=== PATIENT | male | born 1995 | race Caucasian/White ===

== ENCOUNTER 2018-03-16 15:46 | Emergency (ER) | payer BC ==
--- NOTE | 2018-03-16 16:48 | ERPHSYRPT ---
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 STATES LOW GRADE FEVER IN LAST COUPLE DAYS. PT AFEBRILE AT THIS TIME. PT P/W/D RESP EASY A@OX3 Physician History: 22 y/o white male presents with over 2 week h/o right upper quadrant abdominal pain. pt had a normal gallbladder u/s recently per pt. pt denies n/v/d. he has had no fever. i reviewed gallbladder u/s report and no evidence of cholelithiasis or cholecystitis. Timing/Duration: week(s) (over 2 weeks) Activities at Onset: none Abdominal Pain Onset Location: RUQ Pain Radiation: no radiation Severity of Pain-Max: mild Severity of Pain-Current: mild Modifying Factors: Improves With: nothing Associated Symptoms: nausea (intermittent =/-), No back, No chest pain, No diaphoresis, No diarrhea, No loss of appetite, No testicular pain, No vomiting Previous symptoms: same symptoms as today Allergies/Adverse Reactions: No Known Allergies Adverse Reaction (Verified 03/16/18 16:29) Home Medications: Sertraline HCl 100 mg PO DAILY 03/16/18 [History] Trihexyphenidyl HCl 2 mg PO DAILY 03/16/18 [History] - Review of Systems Constitutional: No Symptoms Eyes: No Symptoms Ears, Nose, & Throat: No Symptoms Respiratory: No Symptoms Cardiac: No Symptoms Abdominal/Gastrointestinal: Abdominal Pain (right upper quad), No Nausea, No Vomiting, No Diarrhea, No Constipation Genitourinary Symptoms: No Symptoms Musculoskeletal: No Symptoms Skin: No Symptoms Neurological: No Symptoms Psychological: No Symptoms Endocrine: No Symptoms Hematologic/Lymphatic: No Symptoms Immunological/Allergic: No Symptoms All Other Systems: Reviewed and Negative - Past Medical History Pertinent Past Medical History: Yes Neurological History: No Pertinent History ENT History: No Pertinent History Cardiac History: No Pertinent History Respiratory History: No Pertinent History Endocrine Medical History: No Pertinent History Musculoskeletal History: No Pertinent History GI Medical History: No Pertinent History History: No Pertinent History Psycho-Social History: No Pertinent History Male Reproductive Disorders: No Pertinent History - Past Surgical History Past Surgical History: Yes Neuro Surgical History: No Pertinent History Cardiac: No Pertinent History Respiratory: No Pertinent History Gastrointestinal: No Pertinent History Genitourinary: No Pertinent History Musculoskeletal: No Pertinent History Male Surgical History: No Pertinent History Other Surgical History: RIGHT LIP SURGERY - Social History Smoking Status: Never smoker Drug Use: none - Nursing Vital Signs Nursing Vital Signs: Initial Vital Signs Temperature 98.5 F 03/16/18 16:24 Pulse Rate 99 H 03/16/18 16:24 Respiratory Rate 16 03/16/18 16:24 Blood Pressure 125/89 03/16/18 16:24 O2 Sat by Pulse Oximetry 99 03/16/18 16:24 Pain Scale Pain Intensity 4 - Physical Exam General Appearance: no apparent distress, alert, anxiety Eye Exam: PERRL/EOMI Ears, Nose, Throat Exam: normal ENT inspection, moist mucous membranes Neck Exam: normal inspection, non-tender, supple, full range of motion Respiratory Exam: normal breath sounds, lungs clear, airway intact, No chest tenderness, No respiratory distress, No accessory muscle use, No rhonchi, No wheezing, No stridor Cardiovascular Exam: regular rate/rhythm, normal heart sounds, normal peripheral pulses Gastrointestinal/Abdomen Exam: soft, tenderness (mild right upper quad), No guarding, No rebound Rectal Exam: not done Back Exam: normal inspection, normal range of motion, No CVA tenderness, No vertebral tenderness Extremity Exam: normal inspection, normal range of motion, pelvis stable Neurologic Exam: alert, oriented x 3, cooperative, 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 Skin Exam: normal color, warm, dry Lymphatic Exam: adenopathy SpO2 Interpretation: normal SpO2: 99 Oxygen Delivery: Room Air - Course Nursing assessment & vital signs reviewed: Yes Ordered Tests: Active Orders 24 hr Category Date Time Status ABDOMEN AND PELVIS W/0 CONTRAS [CT] Stat Exams 03/16/18 17:08 Taken AMYLASE Stat Lab 03/16/18 17:35 Completed CBC W DIFF Stat Lab 03/16/18 17:35 Completed CMP Stat Lab 03/16/18 17:35 Completed LIPASE Stat Lab 03/16/18 17:35 Completed Lactic Acid Stat Lab 03/16/18 16:49 Completed Manual Differential NC Stat Lab 03/16/18 17:35 Completed Lab/Rad Data: Laboratory Result Diagrams 03/16/18 17:35 03/16/18 17:35 Laboratory Results 03/16/18 03/16/18 03/16/18 Range/Units 17:35 17:35 16:49 WBC 8.9 (4.0-10.5) K/mm3 RBC 4.06 L (4.1-5.6) M/mm3 Hgb 12.3 L (12.5-18.0) gm/dl Hct 34.6 L (42-50) % MCV 85.2 (78-100) fl MCH 30.2 (26-32) pg MCHC 35.5 (32-36) g/dl RDW 14.3 H (11.5-14.0) % Plt Count 152 (150-450) K/mm3 MPV 10.1 H (6-9.5) fl Absolute Granulocytes 3.14 (1.4-6.9) Sodium 140 (137-145) mmol/L Potassium 4.2 (3.5-5.1) mmol/L Chloride 103 (98-107) mmol/L Carbon Dioxide 29 (22-30) mmol/L Anion Gap 13.0 (5-15) MEQ/L BUN 13 (9-20) mg/dL Creatinine 0.75 (0.66-1.25) mg/dL Estimated GFR > 60.0 ML/MIN Glucose 87 (74-106) mg/dL Lactic Acid 0.7 (0.4-2.0) Calcium 9.0 (8.4-10.2) mg/dL Total Bilirubin 0.70 (0.2-1.3) mg/dL AST 70 H (17-59) U/L ALT 118 H (0-50) U/L Alkaline Phosphatase 85 (38-126) U/L Serum Total Protein 7.0 (6.3-8.2) g/dL Albumin 4.1 (3.5-5.0) g/dL Amylase 77 (30-110) U/L Lipase 73 (23-300) U/L - Progress Progress: re-examined Progress Note: 03/16/18 18:13 ct abd pelvis- mild diffuse fecal stasis. no acute process. nl appendix. Counseled pt/family regarding: lab results, diagnosis, need for follow-up, rad results - Departure Time of Disposition: 18:13 Departure Disposition: Home Clinical Impression: Right upper quadrant abdominal pain, Elevated transaminase level Condition: Stable Critical Care Time: No Referrals: KHANH AMES [Primary Care Provider] - Additional Instructions: drink plenty of fluids. avoid fatty, greasy, spicy foods. follow up with primary doctor for HIDA scan if indicated.
[2018-03-16 17:41] LABS: Granulocyte Absolute (ANC) 3.14 (1.4-6.9); Hematocrit 34.6 % (42-50); Hemoglobin 12.3 gm/dl (12.5-18.0); Mean Cell Volume 85.2 fl (78-100); Mean Corpuscular Hgb Concent. 35.5 g/dl (32-36); Mean Platelet Volume 10.1 fl (6-9.5); Platelet Count 152 K/mm3 (150-450); Red Blood Count 4.06 M/mm3 (4.1-5.6); Red Cell Distribution Width 14.3 % (11.5-14.0); White Blood Count 8.9 K/mm3 (4.0-10.5)
[2018-03-16 17:46] LABS: Mean Corpuscular Hemoglobin 30.2 pg (26-32)
[2018-03-16 17:57] LABS: ALBUMIN 4.1 g/dL (3.5-5.0); ALKALINE PHOSPHATASE 85 U/L (38-126); AMYLASE 77 U/L (30-110); BLOOD UREA NITROGEN 13 mg/dL (9-20); CHLORIDE 103 mmol/L (98-107); Carbon Dioxide 29 mmol/L (22-30); Creatinine 1 0.75 mg/dL (0.66-1.25); Glucose 87 mg/dL (74-106); LIPASE 73 U/L (23-300); Potassium 4.2 mmol/L (3.5-5.1); SGOT/AST 70 U/L (17-59); SGPT/ALT 118 U/L (0-50); SODIUM 140 mmol/L (137-145)
[2018-03-16 18:40] VITALS: BP 108/66
[2018-03-16 18:41] VITALS: PULSE 90; O2SAT 99
[2018-03-16 18:52] LABS: ATYPICAL LYMPHS 16 %; BAND 1 % (0.0-2.0); Eosinophil 2 % (0.00-3.0); Lymphocytes 36 % (24-44); Monocyte 2 % (0.0-12.0); Neutrophils 43 % (36.-66.); Platelet Estimate NORMAL (NORMAL); Total Cells Counted 100
--- NOTE | 2018-03-17 09:19 | XRAY ---
Indication: Right upper quadrant abdominal pain. Multiple contiguous axial images obtained through the abdomen and pelvis without contrast as ordered. Comparison: None Lung bases demonstrates mild bilateral dependent atelectasis. No infiltrate or effusion. Heart is not enlarged. Stomach is distended with food/fluid. Noncontrasted stomach and bowel loops appear nonobstructed. Normal appendix. Mild diffuse scattered colonic fecal debris throughout. Mild sigmoid diverticulosis without diverticulitis. No free fluid/air. Spleen is enlarged measuring 16 cm in greatest axial dimension. Remaining liver, gallbladder, pancreas, spleen, adrenal glands, kidneys, ureters, bladder, and aorta appear unremarkable for noncontrast exam. Osseous structures intact. No ventral or inguinal hernias. Impression: 1. Fecal stasis without obstruction, sigmoid diverticulosis, and splenomegaly. 2. Remaining CT abdomen/pelvis without contrast exam is negative. CT DI 23.54.
== END 2018-03-16 18:44 | disposition home or self-care (01) ==
LOC: ED 15:46
DX: R10.11 Right upper quadrant pain (principal); R74.0 Nonspecific elevation of levels of transaminase and lactic acid dehydrogenase [LDH]; R11.0 Nausea; Z79.899 Other long term (current) drug therapy
CPT/HCPCS: 36415; 74176; 80053; 82150; 83605; 83690; 85025; 99284

== ENCOUNTER 2020-01-11 06:48 | Day surgery (SDC) | payer OTHER ==
[~2020-01-11 06:48] MED LIST: CEFAZOLIN 2 GM-D5W BAG** 2 GM/50 ML ML IV SCH; KEFZOL 1 GM/50 ML PREMIX** 1 GM/50 ML IVPB IV SCH; Lactated Ringers 1,000 ML IV SCH
[2020-01-11] MEDS ORDERED: DIPRIVAN 200 MG/20 ML IV ONE ×2 (07:45→08:15)
[2020-01-11] MEDS ORDERED: Xylocaine-Mpf 2% 5 Ml Vial ONE (07:45)
[2020-01-11] MEDS ORDERED: DILAUDID 2 MG INJECTION ONE (07:45)
[2020-01-11] MEDS ORDERED: XYLOCAINE 1% HCL 20 ML MDV ONE (08:19)
[2020-01-11] MEDS ORDERED: Triple Antibiotic Ointment ONE (08:20)
[2020-01-11] MEDS ORDERED: Zofran 4 MG/2 ML VIAL IV ONE (10:16)
[2020-01-11] MEDS ORDERED: Transderm Scop 1.5MG Patch TOP ONE (10:17)
[2020-01-11 10:42] VITALS: PULSE 69; O2SAT 93
[2020-01-11 10:43] VITALS: BP 128/72
[2020-01-11] MEDS ORDERED: Lactated Ringers 1,000 ML IV ONE (13:37)
--- NOTE | 2020-01-14 13:04 | OP ---
SURGERY DATE: 01/11/2020 0800 PREOPERATIVE DIAGNOSIS: Verruca plantaris of left foot x4. POSTOPERATIVE DIAGNOSIS: Verruca plantaris of left foot x4. PROCEDURE: Excision of verruca plantaris x4. SURGEON: Eric Sanches DPM. CURATOR OF EDUCATION: None. ANESTHESIA: MAC plus local. ANTIBIOTIC: 2 gm Ancef. HEMOSTASIS: Left ankle tourniquet to 250 mm of Mercury for approximately 34 minutes. ESTIMATED BLOOD LOSS: Less than 10 cc. MATERIALS: None. INJECTABLES: Preoperative 30 cc of 1:1 mixture of 0.5% Marcaine plain and 1% lidocaine plain. PATHOLOGY: One sample sent all four warts or verruca plantaris. MICROBIOLOGY: None. COMPLICATIONS: None. DESCRIPTION OF PROCEDURE AND FINDINGS: Following satisfactory preoperative evaluation, the patient was brought to the OR and placed on the OR table in supine position. MAC sedation was administered by the anesthesia team. Following sedation a well-padded tourniquet was placed on the left ankle. Preoperative injection of 30 cc of 0.5% Marcaine plain and 1% lidocaine plain was injected into the left foot in a Guerrero block-type fashion as well as [id number] fashion to the lesions at the plantar aspect of the foot. The foot was prepped and draped in typical sterile manner and the left ankle tourniquet was inflated to 250 mm of Mercury. At this time attention was directed to the large lesion at the plantar and medial aspect of the great toe on the left foot. A 15 blade was utilized to lightly score the edges with a 2 mm rim circumferentially around the verruca plantaris. At this time a verruca curette utilized to lift the epidermis from the dermal layer so as not to expose any fat underneath however resecting the entire lesion in toto and in one piece. The same procedure took place for the remaining three verruca plantaris where there was a 2 mm margin of skin around the verruca plantaris that was peeled off utilizing the verruca curette. At this time copious amounts of sterile saline were utilized to flush the incision site this was then scraped utilizing a new 15 blade to remove any potential viral cells off of the base of the wound. A new verruca curette was then utilized to scrap the dermal surface of the wounds. At this time the wounds were again flushed with sterile saline with copious amounts and electrocautery was used to burn the bases of the dermis in order to kill any remaining component of potential viral debris. At this time the field was completely dried and phenol 89% solution was then applied to the dermal layer in order to adequately insure that there was no chance of recurrence or very low chance of recurrence of the plantar warts. At this time dressing consisting of triple antibiotic ointment was applied to the open wound and a dressing consisting of 4x4's, Lizzeth and Coban was secured around the wounds. The patient was reversed from anesthesia and handled the procedure without complication. The patient handled the anesthesia and the procedure without any significant complication and was returned to the postoperative anesthesia care unit with vital signs stable and vascular status intact. Postoperative orders as follows: 1) Weight bearing to tolerance to the left foot with a surgical shoe. 2) The patient may bathe as normal but should insure that the last thing he washes is his foot and makes sure he dries it thoroughly and apply a dressing for approximately the next six weeks until the wounds have completely healed along with triple antibiotic, Adaptic, 4x4's, Lizzeth and DELL. 3) Pain control Orchard 5/325 mg. 4) Antibiotic prophylaxis Keflex 500 mg every six hours p.o. for ten days. 5) Supplement with 50 mg of zinc daily as well as 500 mg of vitamin C daily. 6) Return to office in one week for follow up. 7) Discharge patient to home.
== END 2020-01-11 10:52 | disposition home or self-care (01) ==
LOC: SDC 06:48
PROVIDERS: ATTEND Podiatrist Foot & Ankle Surgery
DX: B07.0 Plantar wart (principal)
CPT/HCPCS: J0690; J1170; J2405; J2704; A9270-GY